=== PATIENT | female | born 1930 ===

== ENCOUNTER 2017-10-11 22:02 | Inpatient (IN) ==
[2017-10-12] MEDS ORDERED: Bisacodyl 10 MG Supp RECTAL PRN (02:23)
[2017-10-12] MEDS ORDERED: Temazepam 15 MG Capsule PO PRN (02:23)
[2017-10-12] MEDS ORDERED: Acetaminophen 325 MG Tablet PO PRN (02:23)
[2017-10-12] MEDS ORDERED: Morphine Inj 4 MG/ML Vial IV.PUSH PRN (02:25)
[2017-10-12] MEDS: Sod Chloride 0.9% Inj 1,000 ML IV.CONT SCH ×2 (06:11→16:50)
[2017-10-12 08:26] LABS: Baso % (Auto) 0.3 % (0.0-2.0); Eos # (Auto) 0.2 th/mm3 (0.0-0.4); Eos % (Auto) 2.8 % (0.0-4.0); Hematocrit 36.6 % (35.0-46.0); Hemoglobin 12.4 gm/dL (11.6-15.3); Lymph # (Auto) 0.9 th/mm3 (1.0-4.8); Lymph % (Auto) 14.5 % (9.0-44.0); Mean Corpuscular HGB Conc 33.8 % (32.0-36.0); Mean Corpuscular Hemoglobin 28.4 pg (27.0-34.0); Mean Platelet Volume 7.9 fL (7.0-11.0); Mono # (Auto) 0.6 th/mm3 (0.0-0.9); Mono % (Auto) 9.4 % (0.0-8.0); Neut # (Auto) 4.4 th/mm3 (1.8-7.7); Platelet Count 260 th/mm3 (150-450); Red Blood Count 4.35 mil/mm3 (4.00-5.30); Red Cell Distribution Width 14.2 % (11.6-17.2)
[2017-10-12 08:48] LABS: Albumin 2.9 g/dL (3.4-5.0); Anion Gap 10 meq/L (5-15); Aspartate Aminotransferase 11 U/L (15-37); Blood Urea Nitrogen 13 mg/dL (7-18); Calcium 8.9 mg/dL (8.5-10.1); Carbon Dioxide 27.4 meq/L (21.0-32.0); Chloride 98 meq/L (98-107); Glomerular Filtration Rate Greater Than 89 mL/min (>89); Glucose,Random 81 mg/dL (74-106); Potassium 3.1 meq/L (3.5-5.1); Sodium 135 meq/L (136-145)
[2017-10-12 08:52] LABS: Alanine Aminotransferase 18 U/L (10-53); Alkaline Phosphatase 173 U/L (45-117); Total Protein 5.8 g/dL (6.4-8.2)
--- NOTE | 2017-10-12 09:15 | MB ---
cc: Alirio Byrd PA/[employer] DATE: 10/12/2017 CHIEF COMPLAINT: Left pelvic pain status post fall on 09/24/2017. HISTORY OF PRESENT ILLNESS: The patient is an 87-year-old white female who was transferred from [facility] on 10/10/2017. She states that she suffered a fall on 09/24/2017 when she was walking back to her house and missed a step and fell onto her butt. She states that she had immediate pain in her left groin. She was taken to the hospital where she was diagnosed with a back strain and pelvic fractures. She was told to fully weight bear and be discharged home. Recently, however, she states that she has been developing significant urinary retention and increasing back pain, so she reported back to the Emergency Department at [facility]. They subsequently transferred her to [facility]. She states that she has pain in the left pelvis, but is able to fully weight bear with the help of a walker and using her arms. She states she has increasing back pain. She denies any numbness, tingling or radiation of symptoms. Denies any loss of consciousness or dizziness. Denies any fever or chills. Does report that she has been having urinary retention. REVIEW OF SYSTEMS: Denies any fevers, weight loss, headache, visual changes, hearing loss, chest pain, palpitations, shortness of breath, nausea, vomiting, neck pain, skin rashes, weakness or numbness of extremities or depression. ALLERGIES: NO KNOWN ALLERGIES. MEDICATIONS: For a complete list of medications, please see the patient's MAR. PAST MEDICAL HISTORY: Noncontributory. PAST SURGICAL HISTORY: Noncontributory. PHYSICAL EXAMINATION: VITAL SIGNS: Temperature 97.3, pulse 78, respiratory rate 18, blood pressure 140/70, O2 saturation 96% on room air. GENERAL: Well-developed, well-nourished, 87-year-old, white female resting comfortably, in no acute distress. HEAD: Normocephalic, atraumatic. EARS: Hearing intact bilaterally. EYES: Extraocular motions intact. Pupils are equal, round and reactive to light. NECK: Supple with no evidence of lymphadenopathy. NEUROLOGIC: Cranial nerves 2-12 are grossly intact. CHEST AND LUNGS: No use of accessory muscles while breathing and no audible wheezes at bedside. HEART: No grade IV murmur present. ABDOMEN: Soft and nontender. MUSCULOSKELETAL: Left lower extremity: Full motion of the hip, knee, ankle and toes. She does have mild discomfort in the pelvis with movement of the hip. She has full sensation distally with strong dorsiflexion. She has a negative Homans sign. Right lower extremity: Full motion of the hip, knee, ankle and toes and no pain with full sensation distally. Bilateral upper extremities: Full motion of the shoulders, elbows, wrists and fingers with no pain and full sensation distally. LABORATORY DATA: No labs to date.. IMAGING STUDIES: CT scan of the pelvis was reviewed from [facility], which shows minimally displaced left superior and inferior pubic rami fractures. ASSESSMENT: Minimally displaced left superior and inferior pubic rami fractures. PLAN: Treatment options were discussed with the patient regarding her pelvic fractures. This is something that is very stable and nonoperative management will be proceeded with. I informed her that she can fully weight bear with no restrictions. This is something that should cause her some pain and slight discomfort for the next 6-8 weeks. However, this should fade away and do well nonoperatively. I informed her to work on ambulating and fully weightbearing. She is orthopedically cleared for discharge and she can follow up with her on an outpatient basis with orthopedics in 2-3 weeks. I informed her to try and find an orthopedist closer to home so she does not have to travel all the way to [place]. Otherwise, she can be discharged home when medically cleared. Orthopedics will be signing off at this point. For any further problems, please reconsult orthopedics. The patient agrees with this plan. The above patient was reviewed and discussed with Dr. Smalls and he agrees with the above dictation. JOSHUA Joe, JOSHUA/First John Smalls MD Assist TYB/ROSIO , 08:05 AM , 09:13 AM
[2017-10-12] MEDS: Senna/Docusate Sodium 8.6/50 MG Tablet PO SCH ×2 (09:51→21:27)
[2017-10-12] MEDS: Carvedilol 6.25 MG Tablet PO SCH ×2 (09:51→21:27)
[2017-10-12] MEDS: Lisinopril 20 MG Tablet PO SCH (09:52)
--- NOTE | 2017-10-12 10:36 | MB ---
cc: Juan Guerra MD DATE: 10/12/2017 REASON FOR CONSULTATION: Trauma, trauma consultation status post fall. HISTORY OF PRESENT ILLNESS: The patient is an 87-year-old female who presents status post fall. She had a fall initially on 09/24/2017 for which she was evaluated at [facility] with x-rays which were negative and the patient was discharged home. She notes further progression in pain and not much improvement. She returned to the emergency department for further evaluation including more thorough workup including CT pelvis, L-spine and MRI. CT pelvis noted a superior inferior pubic rami fracture. CT spine showed degenerative changes with some spinal stenosis L4-L5. MRI confirming this. The patient also had complaints of difficulty with urination and pelvic pain. She states the pain was 7/10, currently a 4/10, improved with José catheter placement. She has been transferred to [place] for further management and evaluation. During her initial fall, she denied any loss of consciousness, hitting her head or dizziness. She states her foot just gave way and she did note falling on her left hip, for which, she has the persistent left hip pain as well. She has no further history of falls and she is relatively independent and ambulating prior to the event normally; however, after the event she has required assistance with a walker and difficulty getting around. PAST MEDICAL HISTORY: Hypertension. PAST SURGICAL HISTORY: Hysterectomy and ovarian cyst removal. SOCIAL HISTORY: Denies smoking, ETOH or IVDA. ALLERGIES: NO KNOWN DRUG ALLERGIES. MEDICATIONS: See electronic medical record. FAMILY HISTORY: Denies diabetes or hypertension. REVIEW OF SYSTEMS: A 12-point review of systems was done, otherwise negative except for as above. PHYSICAL EXAMINATION: GENERAL: No acute distress. VITAL SIGNS: Temperature 97.3, pulse 78, respirations 18, blood pressure 140/70, saturation 93%. HEENT: Pupils equal, round, reactive. NECK: Supple. Trachea midline. LUNGS: Bilateral expansion, clear. HEART: S1, S2. Regular. ABDOMEN: Soft, nontender, nondistended. PELVIS: Stable. Positive tenderness to palpation. GENITOURINARY: José catheter in place. EXTREMITIES: Warm and well perfused. NEUROLOGIC: 5/5 motor in all extremities. GCS of 15. PSYCHIATRIC: Appropriate mood, appropriate judgment. INTEGUMENT: No obvious masses or lesions. LABORATORY AND DIAGNOSTIC DATA: WBC 6, hemoglobin 12.4, hematocrit 36.6, platelets 260. Sodium 135, potassium 3.1, chloride 98, BUN is 13, creatinine 0.5, glucose 81. CT scans reviewed by myself show a CT abdomen with pelvis pubic rami fracture, nondisplaced, left-sided; distended bladder. Degenerative changes of the spine L4-L5 seen on CT L-spine. MRI confirming spinal stenosis, spinal listhesis, bulging of annulus. ASSESSMENT: The patient is an 87-year-old female, status post fall several weeks ago, presents with persistent pain, pubic rami fractures, neurogenic bladder, urinary retention, spinal stenosis, degenerative changes. PLAN: After a full workup, the patient with above named issues, at this point from a global trauma standpoint, no immediate intervention necessary. Would recommend continued medical care in regard to consultation with possibly Urology for bladder dysfunction, consultation to Neurology for further neuro workup. Recommend Orthopedic evaluation for nondisplaced pubic rami fractures. We will continue to follow. Thank you for the consultation. MD DARIN Jimenez/ROSIO , 09:34 AM , 10:34 AM
--- NOTE | 2017-10-12 13:17 | P.HPIM ---
History of Present Illness Service: [facility] hospitalist Primary Care Physician: UNKNOWN Chief Complaint: Traumatic fall, back pain, urinary retention, lower extremity weakness History of Present Illness: 87-year-old female with a medical history significant for hypertension and hypothyroidism transferred from [facility] for further workup. The patient initially had a fall about 3 weeks ago. She reports that her legs gave way and she fell to her side. She was seen in the emergency room and hip fracture ruled out at the time. She went home but continues to do poorly with difficulty bearing weight and walking. She reports the pain started moving to her lower back on the right side. She also started to have urinary incontinence every time she would stand up. The patient went back to [facility] emergency room where a pelvic CT revealed a superior and inferior pubic rami fracture. CT of the spine also showed degenerative changes at L4-L5. Also concern for fracture at T2. Imaging also showed distended bladder. A José catheter to have since been placed. The patient was transferred to [place] for further workup, consultation with neurology and urology. - Diagnosis (1) Pubic ramus fracture (2) Spinal stenosis (3) Urinary retention (4) Neurogenic bladder Inpatient Certification: I certify that the inpatient services were ordered in accordance with Medicare regulations governing the order. This includes certification that hospital inpatient services are reasonable and necessary and in the case of services not specified as inpatient-only under 42 CFR 419.22(n), that they are appropriately provided as inpatient services in accordance to with the 2-midnight benchmark under 43 CFR 412.3(e) Estimated Total Length of Stay (Days): 2 Plans for Post Hospital Care: Not yet determined Review of Systems All other systems reviewed negative except as stated [facility] - History History Provided By: Patient - Medical History Medical History: Medical History (Last Updated 10/12/17 @ 14:18 by Weston Mays MD) H/O: hysterectomy Hypertension Hypothyroid - Family History Family History: Family History (Last Updated 10/12/17 @ 14:18 by Weston Mays MD) Other Family history non-contributory - Tobacco History Second Hand Smoke Exposure: Yes Smoking Status: Former smoker Tobacco Type: Cigarettes - Alcohol History How Often Do You Have a Drink Containing Alcohol: 2 to 4 times a month - Substance Use History Substance History: No History of Abuse Medications and Allergies Active Medications: Active Medications Acetaminophen (Tylenol) 650 mg PO Q4H PRN PRN Reason: Temp > 100.4 Hydrocodone Bitart/Acetaminophen ([place] 5/325) 1 tab PO Q4H PRN PRN Reason: PAIN 3-5 Last Admin: 10/12/17 10:58 Dose: 1 tab Al Hydroxide/Mg Hydroxide (Milk Of Magnesia Liq) 30 ml PO Q12H PRN PRN Reason: Mild Constipation Last Admin: 10/12/17 09:52 Dose: 30 ml Bisacodyl (Dulcolax Supp) 10 mg RECTAL DAILY PRN PRN Reason: SEVERE CONSITIPATION Carvedilol (Coreg) 6.25 mg PO BID [facility] Last Admin: 10/12/17 09:51 Dose: 6.25 mg Cyclobenzaprine HCl (Flexeril) 10 mg PO Q8H PRN PRN Reason: Muscle Spasm Sodium Chloride (Ns Inj) 1,000 mls @ 100 mls/hr IV.CONT .Q10H [facility] Last Admin: 10/12/17 06:11 Dose: 100 mls/hr Lactulose (Lactulose Liq) 30 ml PO DAILY PRN PRN Reason: SEVERE CONSITIPATION Levothyroxine Sodium (Synthroid) 50 mcg PO DAILY@0600 [facility] Lisinopril (Prinivil) 40 mg PO DAILY [facility] Last Admin: 10/12/17 09:52 Dose: 40 mg Morphine Sulfate (Morphine Inj) 2 mg IV.PUSH Q4H PRN PRN Reason: PAIN 6-10 Ondansetron HCl (Zofran Odt) 4 mg PO Q6H PRN PRN Reason: NAUSEA OR VOMITING Senna/Docusate Sodium (Melina-Colace) 1 tab PO BID [facility] Last Admin: 10/12/17 09:51 Dose: 1 tab Sennosides (Senokot) 17.2 mg PO Q12H PRN PRN Reason: Moderate Constipation Temazepam (Restoril) 15 mg PO HS PRN PRN Reason: INSOMNIA Allergies Allergy/AdvReac Type Severity Reaction Status Date / Time No Known Allergies Allergy Verified 10/12/17 02:29 Home Medications Medication Instructions Recorded Confirmed Type carvedilol 6.25 mg PO BID MDD 2 tablets 10/12/17 10/12/17 History cyclobenzaprine 10 mg PO Q8H PRN 10/12/17 10/12/17 History levothyroxine 50 mcg PO DAILY 10/12/17 10/12/17 History lisinopril 40 mg PO DAILY 10/12/17 10/12/17 History meloxicam 15 mg PO DAILY PRN 10/12/17 10/12/17 History Exam Vital signs: Vital Signs 10/12/17 01:22 10/12/17 04:00 10/12/17 08:00 Temperature 97.3 F L 97.7 F 98.4 F Pulse Rate 78 77 81 Respiratory Rate Blood Pressure 140/70 164/74 H 185/87 H Pulse Oximetry 96 94 L 95 Intake & Output 10/11/17 10/12/17 10/12/17 18:59 06:59 18:59 Output Total 1000 / 1000 360 / 360 Balance -1000 / -1000 -360 / -360 Weight 51.2 kg Output: Urine 1000 / 1000 360 / 360 Other: Date of Last Bowel Movement 10/11/17 10/09/17 Weight On Admission 51.219 kg Narrative: CONSTITUTIONAL/GENERAL: This is an adequately nourished patient, in no apparent distress. Vital signs reviewed SKIN: No jaundice, rashes, or concerning lesions. Not diaphoretic. HEAD: Atraumatic. Normocephalic. EYES: Pupils equal and round and reactive. Extra ocular motions are intact. No scleral icterus. No injection or drainage. ENT: Hearing grossly normal. Nose without drainage. Throat without visible erythema, exudates, masses, or lesions. NECK: Trachea midline. Neck is supple, non-tender. No palpable thyroid enlargement or nodularity. CARDIOVASCULAR: Normal rate and regular rhythm without murmurs, gallops, or rubs. No JVD. Peripheral pulses 2+ and symmetric. RESPIRATORY/CHEST: Symmetric, unlabored respirations. Breath sounds equal and clear to auscultation bilaterally. No wheezes, crackles, rales, or rhonchi. GASTROINTESTINAL: Abdomen soft, non-tender, non-distended. No hepato- splenomegaly, or palpable masses. No guarding. Bowel sounds present. MUSCULOSKELETAL: Extremities without clubbing, cyanosis, or edema. There is tenderness to palpation over the lumbosacral area. NEUROLOGICAL: Awake and alert. Motor and sensory grossly within normal limits. Follows commands. Move all extremities spontaneously. Bilateral lower extremity 4+ out of 5 strength. PSYCHIATRIC: No obvious mood problems. No apparent hallucinations or other psychotic thought process. Results - Labs CBC & Chem 7: 10/12/17 07:06 10/12/17 07:06 Labs: Short CBC 10/12/17 Range/Units 07:06 WBC 6.0 (4.0-11.0) th/mm3 Hgb 12.4 (11.6-15.3) gm/dL Hct 36.6 (35.0-46.0) % Plt Count 260 (150-450) th/mm3 BMP 10/12/17 07:06 Sodium 135 L Potassium 3.1 L Chloride 98 Carbon Dioxide 27.4 BUN 13 Creatinine 0.57 Calcium 8.9 Liver Function 10/12/17 Range/Units 07:06 Total Bilirubin 0.8 (0.2-1.0) mg/dL AST 11 L (15-37) U/L ALT 18 (10-53) U/L Alkaline Phosphatase 173 H (45-117) U/L Albumin 2.9 L (3.4-5.0) g/dL Caprini VTE Risk Assessment Caprini VTE Risk Assessment: Moderate/High Risk (score >= 2) Caprini Risk Assessment Model: Point Value = 1 Point Value = 2 Point Value = 3 Point Value = 5 Age 41-60 Minor surgery BMI > 25 kg/m2 Swollen legs Varicose veins or History of unexplained or recurrent spontaneous Oral contraceptives or hormone replacement Sepsis (< 1 month) Serious lung disease, including pneumonia (< 1 month) Abnormal pulmonary function Acute myocardial infarction Congestive heart failure (< 1 month) History of inflammatory bowel disease Medical patient at bed rest Age 61-74 Arthroscopic surgery Major open surgery (> 45 min) Laparoscopic surgery (> 45 min) Malignancy Confined to bed (> 72 hours) Immobilizing plaster cast Central venous access Age >= 75 History of VTE Family history of VTE Factor V Leiden Prothrombin [id number] Lupus anticoagulant Anticardiolipin antibodies Elevated serum homocysteine Heparin-induced thrombocytopenia Other congenital or acquired thrombophilia Stroke (< 1 month) Elective arthroplasty Hip, pelvis, or leg fracture Acute spinal cord injury (< 1 month) Prophylaxis Regimen: Total Risk Factor Score Risk Level Prophylaxis Regimen 0-1 Low Early ambulation 2 Moderate Order ONE of the following: *Sequential Compression Device (SCD) *Heparin 5000 units SQ BID 3-4 Higher Order ONE of the following medications: *Heparin 5000 units SQ TID *Enoxaparin/Lovenox 40 mg SQ daily (WT < 150 kg, CrCl > 30 mL/min) *Enoxaparin/Lovenox 30 mg SQ daily (WT < 150 kg, CrCl > 10-29 mL/min) *Enoxaparin/Lovenox 30 mg SQ BID (WT < 150 kg, CrCl > 30 mL/min) AND/OR *Sequential Compression Device (SCD) 5 or more Highest Order ONE of the following medications: *Heparin 5000 units SQ TID (Preferred with Epidurals) *Enoxaparin/Lovenox 40 mg SQ daily (WT < 150 kg, CrCl > 30 mL/min) *Enoxaparin/Lovenox 30 mg SQ daily (WT < 150 kg, CrCl > 10-29 mL/min) *Enoxaparin/Lovenox 30 mg SQ BID (WT < 150 kg, CrCl > 30 mL/min) AND *Sequential Compression Device (SCD) Assessment and Plan - Assessment (1) Pubic ramus fracture Code(s): S32.599A - Other specified fracture of unspecified pubis, initial encounter for closed fracture Status: Acute (2) Spinal stenosis Code(s): M48.00 - Spinal stenosis, site unspecified Status: Acute (3) Urinary retention Code(s): R33.9 - Retention of urine, unspecified Status: Acute (4) Neurogenic bladder Code(s): N31.9 - Neuromuscular dysfunction of bladder, unspecified Status: Acute - Plan 87-year-old female with: Status post fall, fracture of pelvic rami: - Patient has been evaluated by trauma service and orthopedic surgery. Advised conservative management and weightbearing as tolerated. - Pain control -Physical therapy. Lumbar spinal stenosis with foraminal narrowing, neurogenic bladder: -Her symptoms might have been exacerbated from the traumatic fall. -Consult neurology for assistance -Pain control. -PT Neurogenic bladder/urinary retention: -José in place. -Consult urology for assistance. Hypertension: Continue home dose Coreg and lisinopril Hypothyroidism: Continue Synthroid Hypokalemia:-This was replaced at [facility]. Repeat labs in a.m. GI prophylaxis: Stool softener PRN constipation. DVT PPx: Heparin H&P: Quality - VTE Deep Vein Thrombosis/Pulmonary Embolism Present on Admission: No
[2017-10-12] MEDS: Heparin - SQ 10,000 UNITS/ML Vial SQ SCH (17:24)
[2017-10-12 17:41] LABS: Hematocrit 34.1 % (35.0-46.0); Hemoglobin 11.7 gm/dL (11.6-15.3); Mean Corpuscular HGB Conc 34.4 % (32.0-36.0); Mean Corpuscular Hemoglobin 28.7 pg (27.0-34.0); Mean Corpuscular Volume 83.3 fL (80.0-100.0); Mean Platelet Volume 7.9 fL (7.0-11.0); Platelet Count 259 th/mm3 (150-450); Red Blood Count 4.09 mil/mm3 (4.00-5.30); Red Cell Distribution Width 14.3 % (11.6-17.2); White Blood Count 7.6 th/mm3 (4.0-11.0)
[2017-10-12 17:53] LABS: Calcium 8.8 mg/dL (8.5-10.1); Carbon Dioxide 27.7 meq/L (21.0-32.0); Potassium 3.8 meq/L (3.5-5.1)
[2017-10-12 18:24] LABS: Bacteria,Urine Rare /hpf; Bilirubin,Urine Negative (Negative); Clarity,Urine Clear (Clear); Color,Urine Straw (Yellw/Straw); Glucose,Urine (UA) Negative (Negative); Leukocyte Esterase,Urine Small (Negative); Nitrite,Urine Negative (Negative); Specific Gravity,Urine 1.003 (1.002-1.035)
--- NOTE | 2017-10-12 19:09 | MB ---
cc: [employer] [place] DO DATE: 10/12/2017 HISTORY OF PRESENT ILLNESS: Ms. Toure is a pleasant 87-year-old female who was initially seen at [facility] and was then transferred up to [place]. She was found to be in urinary retention and approximately 2 liters were drained from her bladder upon presentation. The patient reports a history of a pelvic fracture after a fall which occurred on 09/24 and then she developed subsequent urinary incontinence after that. Her incontinence continued to worsen and then she eventually went into urinary retention. It seemed per her history that she was in overflow incontinence. She denies any urinary tract infections recently or blood in her urine. A CT scan revealed superior and inferior rami pelvic fractures, as well as degenerative changes and a fracture at T2. She also had an MRI which showed some disk bulging at the level of L5-S1 and L3-L4, with nondisplaced acute fracture around the lateral third of the left sacrum. She does have considerable pain and has had trouble moving her bowels recently. PAST MEDICAL HISTORY: Includes urinary retention with pubic ramus fracture, spinal stenosis, hypothyroidism and hypertension. PAST SURGICAL HISTORY: Hysterectomy in the past. FAMILY HISTORY: Denies any bladder cancer. SOCIAL HISTORY: She is a former smoker. She drinks 2-4 times a month with dinner. No history of abuse. REVIEW OF SYSTEMS: Notes pelvic pain, urinary incontinence. Remaining review of systems were reviewed and were negative. PHYSICAL EXAMINATION: VITAL SIGNS: Today, temperature 97.3, heart rate 83, respiratory rate 21, 144/80 is her blood pressure. GENERAL: Well-developed, well-nourished, 87-year-old female in no acute distress. HEENT: Normocephalic, atraumatic. Pupils equal, round, regular and reactive to light. Extraocular movements intact. NECK: Supple. HEART: Regular rate and rhythm. LUNGS: Clear. ABDOMEN: Soft, nontender, nondistended. José catheter is in place draining clear urine. EXTREMITIES: Show no cyanosis, clubbing, or edema. LABORATORY DATA: White count 6.0, hemoglobin 12, hematocrit 36.6, platelets of 260. Sodium 135, potassium 3.1, chloride 98, CO2 27.4, BUN of 13, creatinine 0.57, glucose of 81. ASSESSMENT AND PLAN: This is an 87-year-old female with history of a pelvic fracture and disk bulging at L5-S1, with evidence of overflow incontinence and urinary retention. Urinary retention secondary to recent pelvic fracture with some nerve impairment causing incontinence. Recommend maintaining the José catheter now. Pain control, rehabilitation therapy, as well as a neurologic evaluation. We will follow with you and leave the catheter in for now. I will give a void trial later to determine if she can control her urine. If not, we will need clean intermittent catheterization until her symptoms improve. Thank you for the consult and allowing me to participate in the care of this patient. DO SHAMEKA Mays , 04:33 PM , 07:08 PM
[2017-10-13] MEDS: Sod Chloride 0.9% Inj 1,000 ML IV.CONT SCH (01:16)
[2017-10-13] MEDS: Levothyroxine 50 MCG Tablet PO SCH (06:46)
--- NOTE | 2017-10-13 08:08 | P.CONNEU ---
History of Present Illness Service: Neurology Primary Care Provider: UNKNOWN Chief Complaint: Traumatic fall, back pain, urinary retention, lower extremity weakness History of Present Illness: 87-year-old female with a medical history significant for hypertension and hypothyroidism transferred from [facility] for further workup. The patient initially had a fall about 3 weeks ago. She reports that her legs gave way and she fell to her side. She was seen in the emergency room and hip fracture ruled out at the time. Has mid lower back pain that radiates around the waistline slightly in the buttocks region. No significant radiation down her legs. Hello but numbness in her right buttocks yesterday. Denies any numbness in her feet or her hands or any neck pain or headache. The patient went back to [facility] emergency room where a pelvic CT revealed a superior and inferior pubic rami fracture. Denies any recent medication changes, vaccinations or sick contacts. Review of Systems All other systems reviewed negative except as stated in HPI PMFSH - History History Provided By: Patient - Family History Family History: Family History (Last Updated 10/12/17 @ 14:18 by Weston Mays MD) Other Family history non-contributory - Tobacco History Second Hand Smoke Exposure: Yes Smoking Status: Former smoker Tobacco Type: Cigarettes - Alcohol History How Often Do You Have a Drink Containing Alcohol: 2 to 4 times a month - Substance Use History Substance History: No History of Abuse Medications and Allergies Active Medications: Active Medications Acetaminophen (Tylenol) 650 mg PO Q4H PRN PRN Reason: Temp > 100.4 Hydrocodone Bitart/Acetaminophen ([place] 5/325) 1 tab PO Q4H PRN PRN Reason: PAIN 3-5 Last Admin: 10/12/17 10:58 Dose: 1 tab Al Hydroxide/Mg Hydroxide (Milk Of Magnesia Liq) 30 ml PO Q12H PRN PRN Reason: Mild Constipation Last Admin: 10/12/17 09:52 Dose: 30 ml Bisacodyl (Dulcolax Supp) 10 mg RECTAL DAILY PRN PRN Reason: SEVERE CONSITIPATION Carvedilol (Coreg) 6.25 mg PO BID KARELY Last Admin: 10/12/17 21:27 Dose: 6.25 mg Cyclobenzaprine HCl (Flexeril) 10 mg PO Q8H PRN PRN Reason: Muscle Spasm Heparin Sodium (Porcine) (Heparin Inj) 5,000 units SQ Q12HR [facility] Last Admin: 10/12/17 17:24 Dose: 5,000 units Sodium Chloride (Ns Inj) 1,000 mls @ 100 mls/hr IV.CONT .Q10H [facility] Last Admin: 10/13/17 01:16 Dose: Not Given Lactulose (Lactulose Liq) 30 ml PO DAILY PRN PRN Reason: SEVERE CONSITIPATION Last Admin: 10/12/17 17:24 Dose: 30 ml Levothyroxine Sodium (Synthroid) 50 mcg PO DAILY@0600 [facility] Last Admin: 10/13/17 06:46 Dose: 50 mcg Lisinopril (Prinivil) 40 mg PO DAILY [facility] Last Admin: 10/12/17 09:52 Dose: 40 mg Morphine Sulfate (Morphine Inj) 2 mg IV.PUSH Q4H PRN PRN Reason: PAIN 6-10 Last Admin: 10/13/17 01:50 Dose: 2 mg Ondansetron HCl (Zofran Odt) 4 mg PO Q6H PRN PRN Reason: NAUSEA OR VOMITING Senna/Docusate Sodium (Melina-Colace) 1 tab PO BID [facility] Last Admin: 10/12/17 21:27 Dose: 1 tab Sennosides (Senokot) 17.2 mg PO Q12H PRN PRN Reason: Moderate Constipation Temazepam (Restoril) 15 mg PO HS PRN PRN Reason: INSOMNIA Allergies Allergy/AdvReac Type Severity Reaction Status Date / Time No Known Allergies Allergy Verified 10/12/17 02:29 Home Medications Medication Instructions Recorded Confirmed Type carvedilol 6.25 mg PO BID MDD 2 tablets 10/12/17 10/12/17 History cyclobenzaprine 10 mg PO Q8H PRN 10/12/17 10/12/17 History levothyroxine 50 mcg PO DAILY 10/12/17 10/12/17 History lisinopril 40 mg PO DAILY 10/12/17 10/12/17 History meloxicam 15 mg PO DAILY PRN 10/12/17 10/12/17 History Exam Vital signs: Vital Signs 10/12/17 12:00 10/12/17 20:00 10/13/17 00:00 Temperature 97.3 F L 98.0 F 98.4 F Pulse Rate 83 82 77 Respiratory Rate 21 18 18 Blood Pressure 144/58 H 160/76 H 156/74 H Pulse Oximetry 96 92 L 94 L 10/13/17 04:00 Temperature 97.7 F Pulse Rate 77 Respiratory Rate 18 Blood Pressure 165/77 H Pulse Oximetry 94 L Intake & Output 10/12/17 10/13/17 10/13/17 18:59 06:59 18:59 Output Total 360 / 360 400 / 400 Balance -360 / -360 -400 / -400 Output: Urine 360 / 360 400 / 400 Other: Date of Last Bowel Movement 10/09/17 10/13/17 Narrative: GENERAL: Alert, NAD. SKIN: Warm and dry. HEAD: Normocephalic. EYES: No scleral icterus. NECK: Supple, trachea midline. CARDIOVASCULAR: Regular rate and rhythm RESPIRATORY: Breath sounds equal bilaterally. No accessory muscle use. GASTROINTESTINAL: Abdomen soft, non-tender, nondistended. MUSCULOSKELETAL: No cyanosis, or edema. Awake alert oriented 3 fluent articulate no aphasia visual martinez full tongue midline no pronator drift, heel raise both lower extremity to gravity transiently states she has got pain in her hip which limits this likely from her fracture, pinprick intact no sensory level elicited reflexes are 1-2+, plantarflex her no clonus elicited, gait not assessed secondary fall risk no neglect - Constitutional no acute distress - Routine HEENT Exam Head: Present: normocephalic, atraumatic Eye: Present: EOMI, PERRL ENT: Present: mucous membranes moist - Routine Neck Exam Present: supple, full ROM - Routine Cardiovascular Exam Present: RRR Results - Labs CBC & Chem 7: 10/12/17 16:09 10/12/17 16:09 Labs: Laboratory Results - last 24 hr 10/12/17 10/12/17 10/12/17 07:06 07:06 16:09 WBC 6.0 7.6 RBC 4.35 4.09 Hgb 12.4 11.7 Hct 36.6 34.1 L MCV 84.0 83.3 MCH 28.4 28.7 MCHC 33.8 34.4 RDW 14.2 14.3 Plt Count 260 259 MPV 7.9 7.9 Neut % (Auto) 73.0 H Lymph % (Auto) 14.5 [place] % (Auto) 9.4 H Eos % (Auto) 2.8 Baso % (Auto) 0.3 Neut # (Auto) 4.4 Lymph # (Auto) 0.9 L [place] # (Auto) 0.6 Eos # (Auto) 0.2 Baso # (Auto) 0.0 WBC Differential . Differential Comment Auto diff final Sodium 135 L Potassium 3.1 L Chloride 98 Carbon Dioxide 27.4 Anion Gap 10 BUN 13 Creatinine 0.57 Estimated GFR Greater than 89 Random Glucose 81 Calcium 8.9 Total Bilirubin 0.8 AST 11 L ALT 18 Alkaline Phosphatase 173 H Total Protein 5.8 L Albumin 2.9 L Urine Color Urine Clarity Urine pH Ur Specific [place] Urine Protein Urine Glucose (UA) Urine Ketones Urine Occult Blood Urine Nitrate Urine Bilirubin Urine Urobilinogen Ur Leukocyte Esterase Urine RBC Urine WBC Urine Bacteria Micro UA Comment Urine Culture Comments 10/12/17 10/12/17 16:09 17:45 WBC RBC Hgb Hct MCV MCH MCHC RDW Plt Count MPV Neut % (Auto) Lymph % (Auto) [place] % (Auto) Eos % (Auto) Baso % (Auto) Neut # (Auto) Lymph # (Auto) [place] # (Auto) Eos # (Auto) Baso # (Auto) WBC Differential Differential Comment Sodium 132 L Potassium 3.8 Chloride 95 L Carbon Dioxide 27.7 Anion Gap 9 BUN 17 Creatinine 0.67 Estimated GFR 84 L Random Glucose 91 Calcium 8.8 Total Bilirubin AST ALT Alkaline Phosphatase Total Protein Albumin Urine Color Straw Urine Clarity Clear Urine pH 7.0 Ur Specific [place] 1.003 Urine Protein Negative Urine Glucose (UA) Negative Urine Ketones Trace H Urine Occult Blood Moderate H Urine Nitrate Negative Urine Bilirubin Negative Urine Urobilinogen Less than 2 Ur Leukocyte Esterase Small H Urine RBC 2 Urine WBC 6 H Urine Bacteria Rare H Micro UA Comment Culture not ind Urine Culture Comments Culture not ind Review/Management - Diagnosis (1) Pubic ramus fracture Code(s): S32.599A - Other specified fracture of unspecified pubis, initial encounter for closed fracture Status: Acute Current Visit: Yes (2) Spinal stenosis Code(s): M48.00 - Spinal stenosis, site unspecified Status: Acute Current Visit: Yes (3) Urinary retention Code(s): R33.9 - Retention of urine, unspecified Status: Acute Current Visit : Yes - Review/Management Plan: Possible conus medullaris syndrome versus cord contusion from fall Lesser likely cauda equina syndrome as there is minimal radicular pain and preservation of reflexes Recommendations Follow-up MRI L-spine PT May require neurosurgical evaluation if orthopedics does not want to be involved with any spinal problem Follow exam
[2017-10-13] MEDS: Lisinopril 20 MG Tablet PO SCH (08:38)
[2017-10-13] MEDS: Heparin - SQ 10,000 UNITS/ML Vial SQ SCH ×2 (08:38→20:39)
[2017-10-13] MEDS: Carvedilol 6.25 MG Tablet PO SCH ×2 (08:38→20:39)
--- NOTE | 2017-10-13 08:40 | P.PNOP ---
Subjective Interval history: Resting comfortably with no new complaints. Physical Exam Vital signs: Vital Signs 10/12/17 12:00 10/12/17 20:00 10/13/17 00:00 Temperature 97.3 F L 98.0 F 98.4 F Pulse Rate 83 82 77 Respiratory Rate 21 18 18 Blood Pressure 144/58 H 160/76 H 156/74 H Pulse Oximetry 96 92 L 94 L 10/13/17 04:00 Temperature 97.7 F Pulse Rate 77 Respiratory Rate 18 Blood Pressure 165/77 H Pulse Oximetry 94 L Intake & Output 10/12/17 10/13/17 10/13/17 18:59 06:59 18:59 Output Total 360 / 360 400 / 400 Balance -360 / -360 -400 / -400 Output: Urine 360 / 360 400 / 400 Other: Date of Last Bowel Movement 10/09/17 10/13/17 Narrative: She has pain to palpation over pubic rami. She has minimal pain with passive range of motion of bilateral hips. She has tenderness with active forward flexion of hips. Distally she has intact sensation of bilateral lower extremities with active dorsiflexion plantar flexion of feet Results - Labs CBC & Chem 7: 10/12/17 16:09 10/12/17 16:09 Laboratory Results - last 24 hr 10/12/17 10/12/17 10/12/17 07:06 16:09 16:09 WBC 7.6 RBC 4.09 Hgb 11.7 Hct 34.1 L MCV 83.3 MCH 28.7 MCHC 34.4 RDW 14.3 Plt Count 259 MPV 7.9 Sodium 135 L 132 L Potassium 3.1 L 3.8 Chloride 98 95 L Carbon Dioxide 27.4 27.7 Anion Gap 10 9 BUN 13 17 Creatinine 0.57 0.67 Estimated GFR Greater than 89 84 L Random Glucose 81 91 Calcium 8.9 8.8 Total Bilirubin 0.8 AST 11 L ALT 18 Alkaline Phosphatase 173 H Total Protein 5.8 L Albumin 2.9 L Urine Color Urine Clarity Urine pH Ur Specific [place] Urine Protein Urine Glucose (UA) Urine Ketones Urine Occult Blood Urine Nitrate Urine Bilirubin Urine Urobilinogen Ur Leukocyte Esterase Urine RBC Urine WBC Urine Bacteria Micro UA Comment Urine Culture Comments 10/12/17 17:45 WBC RBC Hgb Hct MCV MCH MCHC RDW Plt Count MPV Sodium Potassium Chloride Carbon Dioxide Anion Gap BUN Creatinine Estimated GFR Random Glucose Calcium Total Bilirubin AST ALT Alkaline Phosphatase Total Protein Albumin Urine Color Straw Urine Clarity Clear Urine pH 7.0 Ur Specific [place] 1.003 Urine Protein Negative Urine Glucose (UA) Negative Urine Ketones Trace H Urine Occult Blood Moderate H Urine Nitrate Negative Urine Bilirubin Negative Urine Urobilinogen Less than 2 Ur Leukocyte Esterase Small H Urine RBC 2 Urine WBC 6 H Urine Bacteria Rare H Micro UA Comment Culture not ind Urine Culture Comments Culture not ind Assessment and Plan - Assessment and Plan Pubic rami fractures Physical therapy will continue to be weightbearing as tolerated on bilateral lower extremities. Using a walker she may continue to progress her activity. We will re-x-ray in 2 weeks in office
--- NOTE | 2017-10-13 10:30 | P.PN ---
Subjective Interval history: Follow-up visit for fall and pelvic rami fracture, lumbar stenosis with foraminal narrowing, neurogenic bladder, and HTN. Patient is seen and examined sitting up in bed, in no acute distress. Reports lower back pain when sitting up straight, able to ambulate with walker. She does report some numbness to right buttocks after sitting for long periods of time, denies any lower extremity weakness, fecal incontinence. Denies any fevers, chills, nausea, vomiting, diarrhea, cough, shortness of breath or chest pain. Spoke with nurse reports planned for lower spine MRI today per neurology, BP elevated this morning. Physical Exam Vital signs: Vital Signs 10/12/17 12:00 10/12/17 20:00 10/13/17 00:00 Temperature 36.3 C L 36.7 C 36.9 C Pulse Rate 83 82 77 Respiratory Rate 21 18 18 Blood Pressure 144/58 H 160/76 H 156/74 H Pulse Oximetry 96 92 L 94 L 10/13/17 04:00 Temperature 36.5 C Pulse Rate 77 Respiratory Rate 18 Blood Pressure 165/77 H Pulse Oximetry 94 L Intake & Output 10/12/17 10/13/17 10/13/17 18:59 06:59 18:59 Output Total 360 / 360 400 / 400 Balance -360 / -360 -400 / -400 Output: Urine 360 / 360 400 / 400 Other: Date of Last Bowel Movement 10/09/17 10/13/17 Narrative: GENERAL: Well nourished patient, in no apparent distress. SKIN: Warm and dry. HEAD: Atraumatic. Normocephalic. EYES: Pupils equal and round. No scleral icterus. No injection or drainage. ENT: Nose without drainage. NECK: Trachea midline. Neck is supple. CARDIOVASCULAR: Normal rate and regular rhythm without murmurs, gallops, or rubs. No JVD. RESPIRATORY: Symmetric, unlabored respirations. Breath sounds equal and clear to auscultation bilaterally. No wheezes, crackles, rales, or rhonchi. GASTROINTESTINAL: Abdomen soft, non-tender, non-distended. + Bowel sounds. GENITOURINARY: José catheter with clear yellow urine in bag. MUSCULOSKELETAL: Extremities without clubbing, cyanosis, or edema. + tenderness to palpation over the lumbosacral area. NEUROLOGICAL: Awake and alert. Motor and sensory grossly within normal limits. Follows commands. Move all extremities spontaneously. - Urinary Catheter Management Indwelling Urethral Catheter Cath placed during this visit: no Reason for continuing: Acute urinary retention Results - Labs CBC & Chem 7: 10/12/17 16:09 10/12/17 16:09 Laboratory Results - last 24 hr 10/12/17 10/12/17 10/12/17 16:09 16:09 17:45 WBC 7.6 RBC 4.09 Hgb 11.7 Hct 34.1 L MCV 83.3 MCH 28.7 MCHC 34.4 RDW 14.3 Plt Count 259 MPV 7.9 Sodium 132 L Potassium 3.8 Chloride 95 L Carbon Dioxide 27.7 Anion Gap 9 BUN 17 Creatinine 0.67 Estimated GFR 84 L Random Glucose 91 Calcium 8.8 Urine Color Straw Urine Clarity Clear Urine pH 7.0 Ur Specific [place] 1.003 Urine Protein Negative Urine Glucose (UA) Negative Urine Ketones Trace H Urine Occult Blood Moderate H Urine Nitrate Negative Urine Bilirubin Negative Urine Urobilinogen Less than 2 Ur Leukocyte Esterase Small H Urine RBC 2 Urine WBC 6 H Urine Bacteria Rare H Micro UA Comment Culture not ind Urine Culture Comments Culture not ind Assessment and Plan - Assessment (1) Pubic ramus fracture Code(s): S32.599A - Other specified fracture of unspecified pubis, initial encounter for closed fracture Status: Acute (2) Spinal stenosis Code(s): M48.00 - Spinal stenosis, site unspecified Status: Acute (3) Urinary retention Code(s): R33.9 - Retention of urine, unspecified Status: Acute (4) Neurogenic bladder Code(s): N31.9 - Neuromuscular dysfunction of bladder, unspecified Status: Acute - Plan 87-year-old female with: Status post fall, fracture of pelvic rami: - Patient has been evaluated by trauma service and orthopedic surgery. Advised conservative management and weightbearing as tolerated. -Weight though recommends weightbearing as tolerated on bilateral lower extremities. Will need to follow-up in 2 weeks for repeat x-ray. - Pain control -Physical therapy. Lumbar spinal stenosis with foraminal narrowing, neurogenic bladder: -Her symptoms might have been exacerbated from the traumatic fall. -Neurology has seen and evaluated patient, appreciate assistance. -Plan for lumbar spine MRI, depending on results possible neurosurgical evaluation. -Pain control. -PT Neurogenic bladder/urinary retention: -José in place. -Urology Dr. [place] has seen and evaluated patient, appreciate assistance. Recommendations to continue José catheter, follow-up as outpatient for voiding trials versus intermittent catheterization. Hypertension - Continue home dose Coreg and lisinopril -BP slightly elevated this morning, start low-dose Norvasc 5 mg daily Hypothyroidism: Continue Synthroid Hypokalemia, resolved, recheck potassium 138. GI prophylaxis: Stool softener PRN constipation. DVT PPx: Heparin Discussed Condition With: Discussed with patient and nurse. Discharge Planning: Patient scheduled for lumbar spine MRI today. Pending neurology clearance.
[2017-10-13] MEDS: Senna/Docusate Sodium 8.6/50 MG Tablet PO SCH ×2 (11:52→20:39)
[2017-10-13] MEDS: amLODIPine 5 MG Tablet PO SCH (12:52)
--- NOTE | 2017-10-13 19:45 | MR ---
EXAM DATE: 10/13/2017 7:35 PM EDT AGE/SEX: 87 years / Female INDICATIONS: Pain. Low back pain with fractures in the pelvis. CLINICAL DATA: This is the patient's initial encounter. Patient reports that signs and symptoms have been present for 2 weeks and indicates a pain score of 9/10. MEDICAL/SURGICAL HISTORY: Hypertension. Hypothyroidism. Hysterectomy. COMPARISON: No prior exams available for comparison. TECHNIQUE: Multiplanar, multisequence MRI of the lumbar spine was performed without contrast. Patie nt was scanned in a sitting position; neutral, flexion, and extension scans were performed in the sa gittal plane. FINDINGS: Vertebra: The lumbar vertebral bodies are normal in signal and normal in height. There is mild anter ior subluxation of L4 on L5 secondary to facet hypertrophy. Pars defects are not present. There appea rs to be a hemangioma at the posterior left lateral L1 vertebral body. There is increased signal with in the left lateral sacrum. Conus: Normal level and configuration. T12-L1: The thecal sac has a normal diameter. No evidence of disc bulge or protrusion. The neural foramina are patent bilaterally. The disc demonstrates decreased signal. L1-L2: The thecal sac has a normal diameter. No evidence of disc bulge or protrusion. The neural foramina are patent bilaterally. The disc demonstrates decreased signal. L2-L3: The thecal sac has a normal diameter. No evidence of disc bulge or protrusion. The neural foramina are patent bilaterally. The disc demonstrates decreased signal. There is mild facet hypertro phy. L3-L4: The disc demonstrates decreased signal. There is minimal bulging without significant stenosi s. There is moderate facet hypertrophy. The neural foramina are patent bilaterally. L4-L5: Again noted is the anterior subluxation of L4 on L5 secondary to facet hypertrophy. The disc demonstrates decreased signal and decreased height. There is moderate diffuse disc bulge. The disc b ulge and facet hypertrophy lead to moderate stenosis with minimal CSF seen around the nerve roots. Th e narrowing of the thecal sac is most prominent at the lateral recess regions. The disc bulge does ca use impression on the right neural foramina. Left neural foramina is patent. L5-S1: The thecal sac has a normal diameter. No evidence of disc bulge or protrusion. The neural foramina are patent bilaterally. The disc demonstrates decreased signal. CONCLUSION: 1. Increased signal within the left lateral upper sacrum likely from fracturing. This a good locatio n for insufficiency fractures. 2. Anterior subluxation of L4 on L5 secondary to severe facet hypertrophy. There is an associated mo derate bulging disc. These changes lead to moderate stenosis at this level. 3. Decreased signal within the disks throughout the lumbar spine consistent with desiccation. The di sc, with the exception of the L4-L5 level, maintain their height. Electronically signed by: Serg Rodriguez MD 10/13/2017 7:44 PM EDT
[2017-10-14] MEDS: Levothyroxine 50 MCG Tablet PO SCH (06:17)
[2017-10-14] MEDS: Senna/Docusate Sodium 8.6/50 MG Tablet PO SCH ×2 (09:41→20:50)
[2017-10-14] MEDS: Heparin - SQ 10,000 UNITS/ML Vial SQ SCH ×2 (09:41→20:49)
[2017-10-14] MEDS: amLODIPine 5 MG Tablet PO SCH (09:41)
[2017-10-14] MEDS: Carvedilol 6.25 MG Tablet PO SCH ×2 (09:41→20:50)
[2017-10-14] MEDS: Lisinopril 20 MG Tablet PO SCH (09:41)
--- NOTE | 2017-10-14 11:27 | P.PN ---
Subjective Interval history: Follow-up visit for fall and pelvic rami fracture, lumbar stenosis with foraminal narrowing, neurogenic bladder, and HTN. Patient is seen and examined resting in bed in no acute distress. She denies any fevers, chills, nausea, vomiting, diarrhea, cough, shortness of breath or chest pain. She continues to complain of tailbone pain especially when sitting up. Physical Exam Vital signs: Vital Signs 10/13/17 16:00 10/13/17 16:05 10/13/17 16:18 Temperature 36.6 C 36.4 C L 36.4 C L Pulse Rate 77 Respiratory Rate 16 16 16 Blood Pressure 146/67 H 182/77 H 170/79 H Pulse Oximetry 97 16 L 98 10/13/17 20:50 10/13/17 23:56 10/14/17 00:30 Temperature 36.3 C L 36.7 C Pulse Rate 70 71 Respiratory Rate 18 18 15 Blood Pressure 167/77 H 163/77 H Pulse Oximetry 97 95 10/14/17 03:58 10/14/17 08:00 Temperature 36.4 C L 36.6 C Pulse Rate 70 74 Respiratory Rate 17 18 Blood Pressure 163/72 H 157/77 H Pulse Oximetry 95 96 Intake & Output 10/13/17 10/14/17 10/14/17 18:59 06:59 18:59 Intake Total 240 / 240 360 / 360 Output Total 1999 550 / 550 Balance 240 / 240 -1640 / -1640 -550 / -550 Weight 51.2 kg Intake: Oral 240 / 240 360 / 360 Output: Urine Amount (Catheter) 1999 550 / 550 Indwelling Urethral Catheter 1999 550 / 550 Other: Date of Last Bowel Movement 10/13/17 10/13/17 # Bowel Movements 0 Narrative: GENERAL: Well nourished patient, in no apparent distress. SKIN: Warm and dry. HEAD: Atraumatic. Normocephalic. EYES: Pupils equal and round. No scleral icterus. No injection or drainage. ENT: Nose without drainage. NECK: Trachea midline. Neck is supple. CARDIOVASCULAR: Normal rate and regular rhythm without murmurs, RESPIRATORY: Breath sounds equal and clear to auscultation bilaterally. No wheezes, crackles, rales, or rhonchi. GASTROINTESTINAL: Abdomen soft, non-tender, non-distended. NEUROLOGICAL: Awake alert oriented 3. Extraocular movements intact no facial asymmetry. - Urinary Catheter Management Indwelling Urethral Catheter Cath placed during this visit: no Reason for continuing: Acute urinary retention Results - Labs CBC & Chem 7: 10/12/17 16:09 10/12/17 16:09 - Imaging Impressions Lumbar Spine MRI 10/13/17 00:00 CONCLUSION: 1. Increased signal within the left lateral upper sacrum likely from fracturing. This a good location for insufficiency fractures. 2. Anterior subluxation of L4 on L5 secondary to severe facet hypertrophy. There is an associated moderate bulging disc. These changes lead to moderate stenosis at this level. 3. Decreased signal within the disks throughout the lumbar spine consistent with desiccation. The disc, with the exception of the L4-L5 level, maintain their height. Assessment and Plan - Assessment (1) Pubic ramus fracture Code(s): S32.599A - Other specified fracture of unspecified pubis, initial encounter for closed fracture Status: Acute (2) Spinal stenosis Code(s): M48.00 - Spinal stenosis, site unspecified Status: Acute (3) Urinary retention Code(s): R33.9 - Retention of urine, unspecified Status: Acute (4) Neurogenic bladder Code(s): N31.9 - Neuromuscular dysfunction of bladder, unspecified Status: Acute - Plan 87-year-old female with: Status post fall, fracture of pelvic rami: - Patient has been evaluated by trauma service and orthopedic surgery. Advised conservative management and weightbearing as tolerated. -Weight though recommends weightbearing as tolerated on bilateral lower extremities. Will need to follow-up in 2 weeks for repeat x-ray. - Pain control -Physical therapy. Lumbar spinal stenosis with foraminal narrowing, neurogenic bladder: -Her symptoms might have been exacerbated from the traumatic fall. -Neurology has seen and evaluated patient, appreciate assistance. -Lumbar spine MRI with increased signals within the left lateral upper sacrum likely from fracturing. Anterior subluxation of L4 on L5 secondary to facet hypertrophy. Associated moderate disc bulging with moderate stenosis at this level. Decreased signal within the disc throughout the lumbar spine consistent with desiccation. -Pain control. -PT Neurogenic bladder/urinary retention: -José in place. -Urology Dr. [place] has seen and evaluated patient, appreciate assistance. Recommendations to continue José catheter, follow-up as outpatient for voiding trials versus intermittent catheterization. Hypertension - Continue home dose Coreg and lisinopril -BP better this a.m. however later this afternoon increased, Norvasc increased to 10 mg daily, as needed clonidine. Hypothyroidism: Continue Synthroid Hypokalemia, resolved, recheck potassium 138. GI prophylaxis: Stool softener PRN constipation. DVT PPx: Heparin Discussed Condition With: Patient and nurse. Discharge Planning: Pending neurology clearance. (1) Pubic ramus fracture Qualifiers: Encounter type: initial encounter
--- NOTE | 2017-10-14 15:25 | P.PNNEU ---
Subjective Subjective Comments: No acute events reported No headache No chest pain No dyspnea Active Medications: Active Medications Acetaminophen (Tylenol) 650 mg PO Q4H PRN PRN Reason: Temp > 100.4 Hydrocodone Bitart/Acetaminophen (Ward 5/325) 1 tab PO Q4H PRN PRN Reason: PAIN 3-5 Last Admin: 10/14/17 06:17 Dose: 1 tab Al Hydroxide/Mg Hydroxide (Milk Of Magnesia Liq) 30 ml PO Q12H PRN PRN Reason: Mild Constipation Last Admin: 10/12/17 09:52 Dose: 30 ml Amlodipine Besylate (Norvasc) 5 mg PO DAILY [facility] Last Admin: 10/14/17 09:41 Dose: 5 mg Bisacodyl (Dulcolax Supp) 10 mg RECTAL DAILY PRN PRN Reason: SEVERE CONSITIPATION Carvedilol (Coreg) 6.25 mg PO BID [facility] Last Admin: 10/14/17 09:41 Dose: 6.25 mg Cyclobenzaprine HCl (Flexeril) 10 mg PO Q8H PRN PRN Reason: Muscle Spasm Last Admin: 10/13/17 16:25 Dose: 10 mg Heparin Sodium (Porcine) (Heparin Inj) 5,000 units SQ Q12HR [facility] Last Admin: 10/14/17 09:41 Dose: 5,000 units Lactulose (Lactulose Liq) 30 ml PO DAILY PRN PRN Reason: SEVERE CONSITIPATION Last Admin: 10/12/17 17:24 Dose: 30 ml Levothyroxine Sodium (Synthroid) 50 mcg PO DAILY@0600 [facility] Last Admin: 10/14/17 06:17 Dose: 50 mcg Lisinopril (Prinivil) 40 mg PO DAILY [facility] Last Admin: 10/14/17 09:41 Dose: 40 mg Morphine Sulfate (Morphine Inj) 2 mg IV.PUSH Q4H PRN PRN Reason: PAIN 6-10 Last Admin: 10/13/17 01:50 Dose: 2 mg Ondansetron HCl (Zofran Odt) 4 mg PO Q6H PRN PRN Reason: NAUSEA OR VOMITING Senna/Docusate Sodium (Melina-Colace) 1 tab PO BID [facility] Last Admin: 10/14/17 09:41 Dose: 1 tab Sennosides (Senokot) 17.2 mg PO Q12H PRN PRN Reason: Moderate Constipation Temazepam (Restoril) 15 mg PO HS PRN PRN Reason: INSOMNIA Allergies/Adverse Reactions: Allergies Allergy/AdvReac Type Severity Reaction Status Date / Time No Known Allergies Allergy Verified 10/12/17 02:29 Review of Systems All other systems reviewed negative except as stated in HPI Physical Exam Vital signs: Vital Signs 10/13/17 16:00 10/13/17 16:05 10/13/17 16:18 Temperature 97.8 F 97.5 F L 97.5 F L Pulse Rate 77 Respiratory Rate 16 16 16 Blood Pressure 146/67 H 182/77 H 170/79 H Pulse Oximetry 97 16 L 98 10/13/17 20:50 10/13/17 23:56 10/14/17 00:30 Temperature 97.3 F L 98.1 F Pulse Rate 70 71 Respiratory Rate 18 18 15 Blood Pressure 167/77 H 163/77 H Pulse Oximetry 97 95 10/14/17 03:58 10/14/17 08:00 10/14/17 11:59 Temperature 97.5 F L 97.8 F 98.2 F Pulse Rate 70 74 72 Respiratory Rate 17 18 18 Blood Pressure 163/72 H 157/77 H 167/76 H Pulse Oximetry 95 96 97 Intake & Output 10/13/17 10/14/17 10/14/17 18:59 06:59 18:59 Intake Total 240 / 240 360 / 360 Output Total 1999 550 / 550 Balance 240 / 240 -1640 / -1640 -550 / -550 Weight 51.2 kg Intake: Oral 240 / 240 360 / 360 Output: Urine Amount (Catheter) 1999 550 / 550 Indwelling Urethral Catheter 1999 550 / 550 Other: Date of Last Bowel Movement 10/13/17 10/13/17 # Bowel Movements 0 Narrative: GENERAL: Well nourished patient, in no apparent distress. SKIN: Warm and dry. HEAD: Atraumatic. Normocephalic. EYES: Pupils equal and round. No scleral icterus. No injection or drainage. ENT: Nose without drainage. NECK: Trachea midline. Neck is supple. CARDIOVASCULAR: Normal rate and regular rhythm without murmurs, RESPIRATORY: Symmetric, unlabored respirations. Breath sounds equal and clear to auscultation bilaterally. No wheezes, crackles, rales, or rhonchi. GASTROINTESTINAL: Abdomen soft, non-tender, non-distended. NEUROLOGICAL: Awake alert oriented 3 fluent articulate no aphasia. Extraocular movements intact no facial asymmetry tongue midline able raise upper extremity gravity without difficulty, able raise lower extremity gravity for 3-5 seconds some limitation secondary to pelvic pain from her fracture. Reflexes 1+ symmetric plantarflex response no clonus gait not assessed secondary to fall risk - Constitutional no acute distress - Routine HEENT Exam Head: Present: normocephalic, atraumatic Eye: Present: EOMI ENT: Present: mucous membranes moist - Urinary Catheter Management Indwelling Urethral Catheter Cath placed during this visit: no Reason for continuing: Other continuation reason Review/Management - Diagnosis (1) Pubic ramus fracture Code(s): S32.599A - Other specified fracture of unspecified pubis, initial encounter for closed fracture Status: Acute Current Visit: Yes (2) Spinal stenosis Code(s): M48.00 - Spinal stenosis, site unspecified Status: Acute Current Visit: Yes (3) Urinary retention Code(s): R33.9 - Retention of urine, unspecified Status: Acute Current Visit : Yes - Review/Management Plan: MRI L-spine images reviewed moderate stenosis L4 L5, severe appearing stenosis at L5-S1 Recommendations Neurosurgical evaluation of lumbar spine Decompression versus trial physical therapy Physical therapy Pain control Follow exam
--- NOTE | 2017-10-14 15:39 | P.DCO ---
- Diagnosis (1) Pubic ramus fracture - Physical Therapy Order: Evaluate and treat, Improve ambulation, Strength and gait training - Home Health Nursing Order: José catheter maintenance - Certification I have seen patient Nickie Toure on 10/14/17. My clinical findings support the need for the requested home health care services because: Limited mobility due to disease progression I certify that my clinical findings support that this patient is homebound because: Unsteady gait/balance (1) Pubic ramus fracture Qualifiers: Encounter type: initial encounter
[2017-10-15] MEDS: Levothyroxine 50 MCG Tablet PO SCH (05:44)
--- NOTE | 2017-10-15 07:39 | P.PNNEU ---
Subjective Subjective Comments: No acute events reported No headache No chest pain No dyspnea Active Medications: Active Medications Acetaminophen (Tylenol) 650 mg PO Q4H PRN PRN Reason: Temp > 100.4 Hydrocodone Bitart/Acetaminophen ([place] 5/325) 1 tab PO Q4H PRN PRN Reason: PAIN 3-5 Last Admin: 10/14/17 17:06 Dose: 1 tab Al Hydroxide/Mg Hydroxide (Milk Of Magnesia Liq) 30 ml PO Q12H PRN PRN Reason: Mild Constipation Last Admin: 10/12/17 09:52 Dose: 30 ml Amlodipine Besylate (Norvasc) 10 mg PO DAILY [facility] Bisacodyl (Dulcolax Supp) 10 mg RECTAL DAILY PRN PRN Reason: SEVERE CONSITIPATION Carvedilol (Coreg) 6.25 mg PO BID [facility] Last Admin: 10/14/17 20:50 Dose: 6.25 mg Clonidine HCl (Catapres) 0.1 mg PO Q6HR PRN PRN Reason: SBP>160, DBP>90 Last Admin: 10/14/17 17:06 Dose: 0.1 mg Cyclobenzaprine HCl (Flexeril) 10 mg PO Q8H PRN PRN Reason: Muscle Spasm Last Admin: 10/13/17 16:25 Dose: 10 mg Heparin Sodium (Porcine) (Heparin Inj) 5,000 units SQ Q12HR [facility] Last Admin: 10/14/17 20:49 Dose: 5,000 units Lactulose (Lactulose Liq) 30 ml PO DAILY PRN PRN Reason: SEVERE CONSITIPATION Last Admin: 10/12/17 17:24 Dose: 30 ml Levothyroxine Sodium (Synthroid) 50 mcg PO DAILY@0600 [facility] Last Admin: 10/15/17 05:44 Dose: 50 mcg Lisinopril (Prinivil) 40 mg PO DAILY [facility] Last Admin: 10/14/17 09:41 Dose: 40 mg Morphine Sulfate (Morphine Inj) 2 mg IV.PUSH Q4H PRN PRN Reason: PAIN 6-10 Last Admin: 10/13/17 01:50 Dose: 2 mg Ondansetron HCl (Zofran Odt) 4 mg PO Q6H PRN PRN Reason: NAUSEA OR VOMITING Senna/Docusate Sodium (Melina-Colace) 1 tab PO BID [facility] Last Admin: 10/14/17 20:50 Dose: 1 tab Sennosides (Senokot) 17.2 mg PO Q12H PRN PRN Reason: Moderate Constipation Temazepam (Restoril) 15 mg PO HS PRN PRN Reason: INSOMNIA Allergies/Adverse Reactions: Allergies Allergy/AdvReac Type Severity Reaction Status Date / Time No Known Allergies Allergy Verified 10/12/17 02:29 Review of Systems All other systems reviewed negative except as stated in HPI Physical Exam Vital signs: Vital Signs 10/14/17 08:00 10/14/17 11:59 10/14/17 20:26 Temperature 97.8 F 98.2 F 98.2 F Pulse Rate 74 72 80 Respiratory Rate 18 18 17 Blood Pressure 157/77 H 167/76 H 126/60 Pulse Oximetry 96 97 99 10/15/17 00:00 10/15/17 01:11 10/15/17 04:21 Temperature 97.7 F 97.4 F L Pulse Rate 72 72 Respiratory Rate 18 17 18 Blood Pressure 134/62 160/72 H Pulse Oximetry 96 95 Intake & Output 10/14/17 10/15/17 10/15/17 18:59 06:59 18:59 Intake Total 480 / 480 Output Total 1250 / 1250 850 / 850 Balance -1250 / -1250 -370 / -370 Intake: Oral 480 / 480 Output: Urine 850 / 850 Urine Amount (Catheter) 1250 / 1250 Indwelling Urethral Catheter 1250 / 1250 Other: Date of Last Bowel Movement 10/16/17 # Bowel Movements 0 Narrative: GENERAL: Well nourished patient, in no apparent distress. SKIN: Warm and dry. HEAD: Atraumatic. Normocephalic. EYES: Pupils equal and round. No scleral icterus. No injection or drainage. ENT: Nose without drainage. NECK: Trachea midline. Neck is supple. CARDIOVASCULAR: Normal rate and regular rhythm without murmurs, RESPIRATORY: Breath sounds equal and clear to auscultation bilaterally. No wheezes, crackles, rales, or rhonchi. GASTROINTESTINAL: Abdomen soft, non-tender, non-distended. NEUROLOGICAL: Awake alert oriented 3. Extraocular movements intact no facial asymmetry. vff, face sym, raising all 4 ext to gravity; legs stronger - Constitutional no acute distress - Urinary Catheter Management Indwelling Urethral Catheter Cath placed during this visit: no Reason for continuing: Acute urinary retention Review/Management - Diagnosis (1) Pubic ramus fracture Code(s): S32.599A - Other specified fracture of unspecified pubis, initial encounter for closed fracture Status: Acute Current Visit: Yes (2) Spinal stenosis Code(s): M48.00 - Spinal stenosis, site unspecified Status: Acute Current Visit: Yes (3) Urinary retention Code(s): R33.9 - Retention of urine, unspecified Status: Acute Current Visit : Yes - Review/Management Plan: MRI L-spine images reviewed moderate stenosis L4 L5, severe appearing stenosis at L5-S1 Recommendations Neurosurgical evaluation of lumbar spine-pending Decompression versus trial physical therapy-legs getting stronger. inpt rehab consider dc'ing rodriguez and reassess bladder function Physical therapy Pain control Follow exam (1) Pubic ramus fracture Qualifiers: Encounter type: initial encounter
[2017-10-15] MEDS: Senna/Docusate Sodium 8.6/50 MG Tablet PO SCH ×2 (09:00→23:04)
[2017-10-15] MEDS: Carvedilol 6.25 MG Tablet PO SCH ×2 (09:00→21:56)
[2017-10-15] MEDS: Lisinopril 20 MG Tablet PO SCH (09:00)
[2017-10-15] MEDS: Heparin - SQ 10,000 UNITS/ML Vial SQ SCH ×2 (09:01→21:56)
[2017-10-15] MEDS: amLODIPine 10 MG Tablet PO SCH (09:01)
--- NOTE | 2017-10-15 09:01 | P.PN ---
Subjective Interval history: Follow-up visit for fall and pelvic rami fracture, lumbar stenosis with foraminal narrowing, neurogenic bladder, and HTN. Patient is seen and examined resting in bed comfortably, in no acute distress. She denies any fevers, chills , nausea, vomiting, diarrhea, cough or shortness of breath. Pending neurosurgical evaluation for spinal stenosis. Physical Exam Vital signs: Vital Signs 10/14/17 11:59 10/14/17 20:26 10/15/17 00:00 Temperature 36.8 C 36.8 C 36.5 C Pulse Rate 72 80 72 Respiratory Rate 18 17 18 Blood Pressure 167/76 H 126/60 134/62 Pulse Oximetry 97 99 96 10/15/17 01:11 10/15/17 04:21 Temperature 36.3 C L Pulse Rate 72 Respiratory Rate 17 18 Blood Pressure 160/72 H Pulse Oximetry 95 Intake & Output 10/14/17 10/15/17 10/15/17 18:59 06:59 18:59 Intake Total 480 / 480 Output Total 1250 / 1250 850 / 850 Balance -1250 / -1250 -370 / -370 Intake: Oral 480 / 480 Output: Urine 850 / 850 Urine Amount (Catheter) 1250 / 1250 Indwelling Urethral Catheter 1250 / 1250 Other: Date of Last Bowel Movement 10/16/17 # Bowel Movements 0 Narrative: GENERAL: Well nourished patient, in no apparent distress. SKIN: Warm and dry. HEAD: Atraumatic. Normocephalic. EYES: Pupils equal and round. No scleral icterus. No injection or drainage. ENT: Nose without drainage. NECK: Trachea midline. Neck is supple. CARDIOVASCULAR: Normal rate and regular rhythm without murmurs, RESPIRATORY: Breath sounds equal and clear to auscultation bilaterally. No wheezes, crackles, rales, or rhonchi. GASTROINTESTINAL: Abdomen soft, non-tender, non-distended. NEUROLOGICAL: Awake alert oriented 3. Extraocular movements intact no facial asymmetry. - Urinary Catheter Management Indwelling Urethral Catheter Cath placed during this visit: no Reason for continuing: Acute urinary retention Results - Labs CBC & Chem 7: 10/12/17 16:09 10/12/17 16:09 Assessment and Plan - Assessment (1) Pubic ramus fracture Code(s): S32.599A - Other specified fracture of unspecified pubis, initial encounter for closed fracture Status: Acute (2) Spinal stenosis Code(s): M48.00 - Spinal stenosis, site unspecified Status: Acute (3) Urinary retention Code(s): R33.9 - Retention of urine, unspecified Status: Acute (4) Neurogenic bladder Code(s): N31.9 - Neuromuscular dysfunction of bladder, unspecified Status: Acute - Plan 87-year-old female with: Status post fall, fracture of pelvic rami: - Patient has been evaluated by trauma service and orthopedic surgery. Advised conservative management and weightbearing as tolerated. -Weight though recommends weightbearing as tolerated on bilateral lower extremities. Will need to follow-up in 2 weeks for repeat x-ray. - Pain control -Physical therapy. Lumbar spinal stenosis with foraminal narrowing, neurogenic bladder: -Her symptoms might have been exacerbated from the traumatic fall. -Neurology has seen and evaluated patient, appreciate assistance. -Lumbar spine MRI with increased signals within the left lateral upper sacrum likely from fracturing. Anterior subluxation of L4 on L5 secondary to facet hypertrophy. Associated moderate disc bulging with moderate stenosis at this level. Decreased signal within the disc throughout the lumbar spine consistent with desiccation. -Pain control. -PT -Pending neurosurgical evaluationhyd Neurogenic bladder/urinary retention: -José in place. -Urology Dr. [place] has seen and evaluated patient, appreciate assistance. Recommendations to continue José catheter, follow-up as outpatient for voiding trials versus intermittent catheterization. Hypertension - Continue home dose Coreg, lisinopril, and Norvasc. BP still on the high side, will add Hydralazine. -As needed clonidine. Hypothyroidism: Continue Synthroid Hypokalemia, resolved, recheck potassium 3.8 GI prophylaxis: Stool softener PRN constipation. DVT PPx: Heparin Discussed Condition With: Patient and pricing clerk Planning: Pending neurosurgical eval. (1) Pubic ramus fracture Qualifiers: Encounter type: initial encounter
--- NOTE | 2017-10-15 17:27 | P.CONNS ---
History of Present Illness Primary Care Provider: UNKNOWN Chief Complaint: Traumatic fall, back pain, urinary retention, lower extremity weakness History of Present Illness: 87-year-old white female who was transferred from [facility] on . She states that she suffered a fall on 09/24/2017 when she was walking back to her house and missed a step and fell onto her butt. She states that she had immediate pain in her left groin. She was taken to the hospital where she was diagnosed with a back strain and pelvic fractures. She had some urinary retention and had a José catheter placed and subsequently transferred her to [facility] for further management. She states that she has pain in the left pelvis, but is able to fully weight bear with the help of a walker and using her arms. She states she has increasing back pain. She denies any numbness, tingling or radiation of symptoms. Denies any loss of consciousness or dizziness. She has been evaluated by neurology and MRI scan lumbar spine obtained reveals moderate L4-5 spinal stenosis from disc protrusion and facet hypertrophy with degenerative disease. 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 She also appears to have a sacral left-sided insufficiency fracture and possible also coccyx fracture. Orthopedic surgery is recommended nonsurgical management of her pelvic fracture. She has been ambulating with a walker and is planning on being discharged home with home physical therapy. She relates that she has a son and [id number] at home that will help her. Review of Systems Constitutional: Denies anorexia, Denies body ache(s), Denies chills, Denies daytime sleepiness, Denies excessive sweating, Denies fatigue, Denies fever(s), Denies headache(s), Denies increased appetite, Denies lack of energy, Denies malaise, Denies night sweats, Denies weakness, Denies weight gain, Denies weight loss, Denies other Eyes: Denies blind spots, Denies blurry vision, Denies bulging eyes, Denies change in vision, Denies double vision, Denies discharge, Denies dry eyes, Denies floaters, Denies irritation, Denies itchy eyes, Denies loss of vision, Denies pain, Denies requires corrective lenses, Denies sensitivity to light, Denies other Ears, Nose, Mouth, and Throat: Denies abnormal hearing, Denies bleeding gums, Denies bad breath, Denies change in voice, Denies dental pain, Denies difficulty swallowing, Denies dizziness, Denies dry mouth, Denies ear discharge , Denies ear pain, Denies facial pain, Denies headache(s), Denies hearing loss, Denies hoarseness, Denies lip swelling, Denies nosebleed, Denies mouth lesions, Denies mouth pain, Denies nasal congestion, Denies nasal discharge, Denies nasal obstruction, Denies nasal trauma, Denies neck lump, Denies neck pain, Denies nose pain, Denies pain with swallowing, Denies poor balance, Denies post nasal drip, Denies ringing in the ears, Denies sinus pain, Denies sinus pressure , Denies sore throat, Denies throat swelling, Denies tongue swelling, Denies other Cardiovascular: Denies chest pain, Denies chest pain at rest, Denies chest pain with activity, Denies excessive sweating, Denies fainting, Denies fast heart rate, Denies foot swelling, Denies generalized swelling, Denies irregular heart rhythm, Denies leg pain with activity, Denies leg sores, Denies leg swelling, Denies lightheadedness, Denies radiating jaw, neck or arm pain, Denies rapid, pounding, or irregular heartbeat, Denies shortness of breath, Denies shortness of breath with activity, Denies shortness of breath when lying down, Denies shortness of breath causing sudden awakening, Denies slow heart rate, Denies other Respiratory: Denies change in phlegm color, Denies chest congestion, Denies cough, Denies coughing up blood, Denies excessive phlegm production, Denies pain on inspiration, Denies pain with cough, Denies shortness of breath, Denies shortness of breath with activity, Denies snoring, Denies stridor, Denies wheezing, Denies other Gastrointestinal: Denies abdominal pain, Denies belching, Denies black, tarry stools, Denies bloating, Denies bright, red blood in stools, Denies change in bowel habits, Denies constant urge to pass stool, Denies change in stools, Denies coffee ground vomit, Denies constipation, Denies cramping, Denies difficulty swallowing, Denies excessive passing of gas, Denies feeling full early, Denies heartburn, Denies incontinent of stools, Denies loose stools, Denies nausea, Denies pain with swallowing, Denies vomiting, Denies vomiting blood, Denies other Genitourinary: Reports difficulty starting urination, Reports difficulty urinating, Reports dribbling after urination, Reports pelvic pain, Denies abnormal periods, Denies abnormal vaginal bleeding, Denies absent period, Denies bleeding between periods, Denies blood in urine, Denies frequent nighttime urination, Denies genital itching, Denies genital lesions, Denies heavy periods, Denies hot flashes, Denies light periods, Denies nipple discharge , Denies painful intercourse, Denies painful periods, Denies painful urination, Denies prolapse symptoms, Denies sexual problems, Denies side pain, Denies urinary incontinence, Denies urinary urgency, Denies vaginal discharge, Denies vaginal dryness, Denies vaginal odor, Denies vaginal itching, Denies other Musculoskeletal: Reports back pain, Reports stiffness, Denies abnormal walking, Denies body aches, Denies decreased muscle mass, Denies deformity, Denies joint pain, Denies joint swelling, Denies limited joint movement, Denies loss of height, Denies muscle cramps, Denies muscle weakness, Denies neck pain, Denies numbness, Denies radiating pain into limb, Denies tingling, Denies other Skin/Breast: Denies acne, Denies bleeding lesions, Denies boil, Denies breast swelling, Denies breast skin changes, Denies breast pain, Denies breast lump, Denies change in breast shape, Denies change in hair, Denies change in skin color, Denies changing lesions, Denies dry skin, Denies excessive hair growth, Denies hair loss, Denies itching, Denies lesions, Denies nail changes, Denies new lesions, Denies nipple discharge, Denies non-healing lesions, Denies redness , Denies sensitivity to light, Denies rash, Denies skin pain, Denies skin ulcer , Denies sores, Denies stretch estrada, Denies unusual bruising, Denies wounds, Denies yellowing of the skin, Denies other Neurologic: Denies abnormal hearing, Denies abnormal movements, Denies abnormal speech, Denies abnormal walking, Denies behavioral changes, Denies burning sensations, Denies confusion, Denies dizziness, Denies fainting, Denies frequent falls, Denies headache(s), Denies lack of coordination, Denies localized weakness, Denies loss of vision, Denies memory loss, Denies numbness, Denies other visual disturbances, Denies radiating pain, Denies restless legs, Denies convulsions, Denies seizure-like activity, Denies sensory deficit, Denies tingling, Denies tingling/numbness/burning sensations, Denies tremor(s), Denies unsteadiness, Denies weakness, Denies other Psychiatric: Denies abnormal sleep pattern, Denies anxiety, Denies behavioral changes, Denies change in appetite, Denies change in sex drive, Denies confusion , Denies depression, Denies difficulty concentrating, Denies hearing things others do not hear, Denies hopelessness, Denies irritability, Denies lack of enjoyment, Denies memory loss, Denies mood swings, Denies panic attacks, Denies paranoia, Denies seeing things others do not see, Denies sensing things others do not sense, Denies tactile hallucinations, Denies thoughts of hurting/killing others, Denies thoughts of hurting/killing yourself, Denies other Endocrine: Denies cold intolerance, Denies excessive sweating, Denies flushing, Denies heat intolerance, Denies increased hunger, Denies increased thirst, Denies increased urination, Denies rapid, pounding, or irregular heartbeat, Denies other Hematologic/Lymphatic: Denies easy bleeding, Denies easy bruising, Denies enlarged lymph nodes, Denies other Allergic/Immunologic: Denies GI upset with certain foods, Denies hives, Denies itchy eyes, Denies lip swelling, Denies seasonal runny nose, Denies throat swelling, Denies tongue swelling, Denies wheezing, Denies other PMFSH - History History Provided By: Patient - Family History Family History: Family History (Last Updated 10/12/17 @ 14:18 by Weston Mays MD) Other Family history non-contributory - Tobacco History Second Hand Smoke Exposure: Yes Smoking Status: Former smoker Tobacco Type: Cigarettes - Alcohol History How Often Do You Have a Drink Containing Alcohol: 2 to 4 times a month - Substance Use History Substance History: No History of Abuse Medications and Allergies Active Medications: Active Medications Acetaminophen (Tylenol) 650 mg PO Q4H PRN PRN Reason: Temp > 100.4 Hydrocodone Bitart/Acetaminophen ([place] 5/325) 1 tab PO Q4H PRN PRN Reason: PAIN 3-5 Last Admin: 10/14/17 17:06 Dose: 1 tab Al Hydroxide/Mg Hydroxide (Milk Of Magnesia Liq) 30 ml PO Q12H PRN PRN Reason: Mild Constipation Last Admin: 10/12/17 09:52 Dose: 30 ml Amlodipine Besylate (Norvasc) 10 mg PO DAILY [facility] Last Admin: 10/15/17 09:01 Dose: 10 mg Bisacodyl (Dulcolax Supp) 10 mg RECTAL DAILY PRN PRN Reason: SEVERE CONSITIPATION Carvedilol (Coreg) 6.25 mg PO BID [facility] Last Admin: 10/15/17 09:00 Dose: 6.25 mg Clonidine HCl (Catapres) 0.1 mg PO Q6HR PRN PRN Reason: SBP>160, DBP>90 Last Admin: 10/14/17 17:06 Dose: 0.1 mg Cyclobenzaprine HCl (Flexeril) 10 mg PO Q8H PRN PRN Reason: Muscle Spasm Last Admin: 10/13/17 16:25 Dose: 10 mg Heparin Sodium (Porcine) (Heparin Inj) 5,000 units SQ Q12HR [facility] Last Admin: 10/15/17 09:01 Dose: 5,000 units Hydralazine HCl (Apresoline) 10 mg PO TID [facility] Lactulose (Lactulose Liq) 30 ml PO DAILY PRN PRN Reason: SEVERE CONSITIPATION Last Admin: 10/15/17 09:02 Dose: 30 ml Levothyroxine Sodium (Synthroid) 50 mcg PO DAILY@0600 [facility] Last Admin: 10/15/17 05:44 Dose: 50 mcg Lisinopril (Prinivil) 40 mg PO DAILY [facility] Last Admin: 10/15/17 09:00 Dose: 40 mg Morphine Sulfate (Morphine Inj) 2 mg IV.PUSH Q4H PRN PRN Reason: PAIN 6-10 Last Admin: 10/13/17 01:50 Dose: 2 mg Ondansetron HCl (Zofran Odt) 4 mg PO Q6H PRN PRN Reason: NAUSEA OR VOMITING Senna/Docusate Sodium (Melina-Colace) 1 tab PO BID [facility] Last Admin: 10/15/17 09:00 Dose: 1 tab Sennosides (Senokot) 17.2 mg PO Q12H PRN PRN Reason: Moderate Constipation Temazepam (Restoril) 15 mg PO HS PRN PRN Reason: INSOMNIA Allergies Allergy/AdvReac Type Severity Reaction Status Date / Time No Known Allergies Allergy Verified 10/12/17 02:29 Home Medications Medication Instructions Recorded Confirmed Type carvedilol 6.25 mg PO BID MDD 2 tablets 10/12/17 10/12/17 History cyclobenzaprine 10 mg PO Q8H PRN 10/12/17 10/12/17 History levothyroxine 50 mcg PO DAILY 10/12/17 10/12/17 History lisinopril 40 mg PO DAILY 10/12/17 10/12/17 History meloxicam 15 mg PO DAILY PRN 10/12/17 10/12/17 History Exam Vital signs: Vital Signs 10/14/17 20:26 10/15/17 00:00 10/15/17 01:11 Temperature 98.2 F 97.7 F Pulse Rate 80 72 Respiratory Rate 17 18 17 Blood Pressure 126/60 134/62 Pulse Oximetry 99 96 10/15/17 04:21 10/15/17 08:00 10/15/17 12:00 Temperature 97.4 F L 97.9 F 98.0 F Pulse Rate 72 76 79 Respiratory Rate 18 18 18 Blood Pressure 160/72 H 179/79 H 136/64 Pulse Oximetry 95 96 95 Intake & Output 10/14/17 10/15/17 10/15/17 18:59 06:59 18:59 Intake Total 480 / 480 Output Total 1250 / 1250 850 / 850 Balance -1250 / -1250 -370 / -370 Intake: Oral 480 / 480 Output: Urine 850 / 850 Urine Amount (Catheter) 1250 / 1250 Indwelling Urethral Catheter 1250 / 1250 Other: Date of Last Bowel Movement 10/16/17 # Bowel Movements 0 - Constitutional no acute distress - Routine HEENT Exam Head: Present: normocephalic, atraumatic Eye: Present: EOMI, PERRL - Routine Neck Exam Present: supple, full ROM - Routine Respiratory Exam Present: CTA bilaterally - Routine Cardiovascular Exam Present: RRR, S1, S2 - Routine Abdominal Exam Present: soft, normoactive bowel sounds - Routine Extremities Exam Present: full ROM, pulses intact, normal capillary refill - Routine Skin Exam Present: intact, normal turgor - Routine Neurological Exam Present: oriented X3, CN II-XII intact, normal reflexes, plantar reflex, moving all extremities, normal tone, hearing grossly intact, normal speech Results - Laboratory Findings CBC and BMP: 10/12/17 16:09 10/12/17 16:09 Abnormal lab findings: Abnormal Labs 10/12/17 10/12/17 10/12/17 07:06 07:06 16:09 Hct 34.1 L Neut % (Auto) 73.0 H [place] % (Auto) 9.4 H Lymph # (Auto) 0.9 L Sodium 135 L Potassium 3.1 L Chloride Estimated GFR AST 11 L Alkaline Phosphatase 173 H Total Protein 5.8 L Albumin 2.9 L Urine Ketones Urine Occult Blood Ur Leukocyte Esterase Urine WBC Urine Bacteria 10/12/17 10/12/17 16:09 17:45 Hct Neut % (Auto) [place] % (Auto) Lymph # (Auto) Sodium 132 L Potassium Chloride 95 L Estimated GFR 84 L AST Alkaline Phosphatase Total Protein Albumin Urine Ketones Trace H Urine Occult Blood Moderate H Ur Leukocyte Esterase Small H Urine WBC 6 H Urine Bacteria Rare H - Diagnostic Findings Additional findings: Impressions Lumbar Spine MRI 10/13/17 00:00 CONCLUSION: 1. Increased signal within the left lateral upper sacrum likely from fracturing. This a good location for insufficiency fractures. 2. Anterior subluxation of L4 on L5 secondary to severe facet hypertrophy. There is an associated moderate bulging disc. These changes lead to moderate stenosis at this level. 3. Decreased signal within the disks throughout the lumbar spine consistent with desiccation. The disc, with the exception of the L4-L5 level, maintain their height. Assessment and Plan - Assessment (1) Degenerative lumbar spinal stenosis Code(s): M48.061 - Spinal stenosis, lumbar region without neurogenic claudication Status: Acute (2) Pubic ramus fracture Code(s): S32.599A - Other specified fracture of unspecified pubis, initial encounter for closed fracture Status: Acute - Plan 87-year-old lady with a history of low back pain without any associated radiculopathy after a fall 3 weeks ago. She is found to have left pelvic fracture along with the likely sacral and coccyx insufficiency fracture with moderate L4-5 spinal stenosis which is chronic. Her symptoms are improving and she is not able to ambulate and denies any numbness or weakness in the lower extremity. She has a José catheter in place for urinary retention and is being followed by urology. She does not have any cauda equina related symptoms. Treatment options with the lumbar stenosis were discussed including surgical intervention versus continued conservative management. Patient favors continued nonsurgical management and accordingly would recommend rehab and pain control. If her symptoms worsen in the future then she will follow-up in clinic for reevaluation. (2) Pubic ramus fracture Qualifiers: Encounter type: initial encounter
[2017-10-15] MEDS: hydrALAZINE 10 MG Tablet PO SCH (18:39)
[2017-10-16] MEDS: Levothyroxine 50 MCG Tablet PO SCH (06:04)
[2017-10-16 09:30] VITALS: RESP 17
--- NOTE | 2017-10-16 09:31 | P.PNNEU ---
Subjective Subjective Comments: No acute events reported No headache No chest pain No dyspnea Active Medications: Active Medications Acetaminophen (Tylenol) 650 mg PO Q4H PRN PRN Reason: Temp > 100.4 Hydrocodone Bitart/Acetaminophen ([place] 5/325) 1 tab PO Q4H PRN PRN Reason: PAIN 3-5 Last Admin: 10/16/17 06:03 Dose: 1 tab Al Hydroxide/Mg Hydroxide (Milk Of Magnesia Liq) 30 ml PO Q12H PRN PRN Reason: Mild Constipation Last Admin: 10/12/17 09:52 Dose: 30 ml Amlodipine Besylate (Norvasc) 10 mg PO DAILY [facility] Last Admin: 10/15/17 09:01 Dose: 10 mg Bisacodyl (Dulcolax Supp) 10 mg RECTAL DAILY PRN PRN Reason: SEVERE CONSITIPATION Carvedilol (Coreg) 6.25 mg PO BID [facility] Last Admin: 10/15/17 21:56 Dose: 6.25 mg Clonidine HCl (Catapres) 0.1 mg PO Q6HR PRN PRN Reason: SBP>160, DBP>90 Last Admin: 10/14/17 17:06 Dose: 0.1 mg Cyclobenzaprine HCl (Flexeril) 10 mg PO Q8H PRN PRN Reason: Muscle Spasm Last Admin: 10/13/17 16:25 Dose: 10 mg Heparin Sodium (Porcine) (Heparin Inj) 5,000 units SQ Q12HR [facility] Last Admin: 10/15/17 21:56 Dose: 5,000 units Hydralazine HCl (Apresoline) 10 mg PO TID [facility] Last Admin: 10/15/17 18:39 Dose: 10 mg Lactulose (Lactulose Liq) 30 ml PO DAILY PRN PRN Reason: SEVERE CONSITIPATION Last Admin: 10/15/17 09:02 Dose: 30 ml Levothyroxine Sodium (Synthroid) 50 mcg PO DAILY@0600 [facility] Last Admin: 10/16/17 06:04 Dose: 50 mcg Lisinopril (Prinivil) 40 mg PO DAILY [facility] Last Admin: 10/15/17 09:00 Dose: 40 mg Morphine Sulfate (Morphine Inj) 2 mg IV.PUSH Q4H PRN PRN Reason: PAIN 6-10 Last Admin: 10/13/17 01:50 Dose: 2 mg Ondansetron HCl (Zofran Odt) 4 mg PO Q6H PRN PRN Reason: NAUSEA OR VOMITING Senna/Docusate Sodium (Melina-Colace) 1 tab PO BID [facility] Last Admin: 10/15/17 23:04 Dose: Not Given Sennosides (Senokot) 17.2 mg PO Q12H PRN PRN Reason: Moderate Constipation Last Admin: 10/15/17 22:06 Dose: 17.2 mg Temazepam (Restoril) 15 mg PO HS PRN PRN Reason: INSOMNIA Allergies/Adverse Reactions: Allergies Allergy/AdvReac Type Severity Reaction Status Date / Time No Known Allergies Allergy Verified 10/12/17 02:29 Physical Exam Vital signs: Vital Signs 10/15/17 12:00 10/15/17 16:00 10/15/17 20:00 Temperature 98.0 F 97.6 F 98.3 F Pulse Rate 79 79 83 Respiratory Rate 18 17 16 Blood Pressure 136/64 163/74 H 148/67 H Pulse Oximetry 95 98 95 10/16/17 00:00 Temperature 98.3 F Pulse Rate 75 Respiratory Rate 14 Blood Pressure 145/66 H Pulse Oximetry 96 Intake & Output 10/15/17 10/16/17 10/16/17 18:59 06:59 18:59 Intake Total 600 / 600 Output Total 1175 / 1175 1200 / 1200 Balance -1175 / -1175 -600 / -600 Intake: Oral 600 / 600 Output: Urine 1175 / 1175 1200 / 1200 Narrative: GENERAL: Well nourished patient, in no apparent distress. SKIN: Warm and dry. HEAD: Atraumatic. Normocephalic. EYES: Pupils equal and round. No scleral icterus. No injection or drainage. ENT: Nose without drainage. NECK: Trachea midline. Neck is supple. CARDIOVASCULAR: Normal rate and regular rhythm without murmurs, RESPIRATORY: Breath sounds equal and clear to auscultation bilaterally. GASTROINTESTINAL: Abdomen soft, non-tender, non-distended. NEUROLOGICAL: Awake alert oriented 3. Extraocular movements intact no facial asymmetry. Visual martinez full able to raise all extremity gravity for at least 10 seconds. Improved strength in her lower legs reflexes 2+ symmetric plantarflex her no clonus elicited gait not assessed secondary to fall risk - Urinary Catheter Management Indwelling Urethral Catheter Cath placed during this visit: no Reason for continuing: Acute urinary retention Review/Management - Diagnosis (1) Pubic ramus fracture Code(s): S32.599A - Other specified fracture of unspecified pubis, initial encounter for closed fracture Status: Acute Current Visit: Yes (2) Spinal stenosis Code(s): M48.00 - Spinal stenosis, site unspecified Status: Acute Current Visit: Yes (3) Urinary retention Code(s): R33.9 - Retention of urine, unspecified Status: Acute Current Visit : Yes - Review/Management Plan: MRI L-spine images reviewed moderate stenosis L4 L5, severe appearing stenosis at L5-S1 Seen by neurosurgery Recommendations Discharge planning home versus rehab. Patient preferring to go home stay with her children consider dc'ing rodriguez and reassess bladder function Laxative for constipation (1) Pubic ramus fracture Qualifiers: Encounter type: initial encounter
[2017-10-16] MEDS: hydrALAZINE 10 MG Tablet PO SCH ×2 (09:49→13:00)
[2017-10-16] MEDS: amLODIPine 10 MG Tablet PO SCH (09:49)
[2017-10-16] MEDS: Lisinopril 20 MG Tablet PO SCH (09:49)
[2017-10-16] MEDS: Senna/Docusate Sodium 8.6/50 MG Tablet PO SCH (09:49)
[2017-10-16] MEDS: Carvedilol 6.25 MG Tablet PO SCH (09:49)
[2017-10-16] MEDS: Heparin - SQ 10,000 UNITS/ML Vial SQ SCH (09:50)
--- NOTE | 2017-10-16 09:59 | P.DS ---
Date of admission: 10/12/17 00:29 Primary care physician: UNKNOWN Attending physician on discharge: Weston Mays Anticipated date of discharge: 10/16/17 Brief History from admission: 87-year-old female with a medical history significant for hypertension and hypothyroidism transferred from [facility] for further workup. The patient initially had a fall about 3 weeks ago. She reports that her legs gave way and she fell to her side. She was seen in the emergency room and hip fracture ruled out at the time. She went home but continues to do poorly with difficulty bearing weight and walking. She reports the pain started moving to her lower back on the right side. She also started to have urinary incontinence every time she would stand up. The patient went back to [facility] emergency room where a pelvic CT revealed a superior and inferior pubic rami fracture. CT of the spine also showed degenerative changes at L4-L5. Also concern for fracture at T2. Imaging also showed distended bladder. A José catheter to have since been placed. The patient was transferred to [facility] for further workup, consultation with neurology and urology. DS: Diagnosis - Discharge Diagnosis (1) Pubic ramus fracture Status: Acute (2) Spinal stenosis Status: Acute (3) Urinary retention Status: Acute (4) Neurogenic bladder Status: Acute DS: Medications - Discharge Medications Prescriptions: amlodipine [Norvasc] 10 mg PO DAILY #30 tab hydrocodone-acetaminophen 1 tab PO Q4H PRN #8 tab PRN Reason: PAIN 3-10 DS: Summary Hospital Course: 87-year-old female with past medical history significant for HTN and hypothyroidism who is a transfer from [facility] for further workup fall about 3 weeks previous to admission. During evaluation at [facility] CT of the pelvis revealed a superior and inferior pubic rami fracture. CT of the spine also show degenerative changes at L4-L5 with concerning for fractures at T2. Patient also had distended bladder and urinary retention for which she had José catheter applied. Orthopedic surgery was consulted to evaluate for pelvic rami fracture, or though recommended conservative management with weightbearing as tolerated. Neurology was consulted for concerns of lower extremity weakness, trauma and urinary retention. Neurology evaluated patient and recommended MRI of the lumbar spine which showed stenosis. Neurosurgery was consulted and evaluated patient and discussed options. The choice was made for conservative treatment and follow-up with neurosurgery as outpatient. Patient was also evaluated by urology who recommended continuing José catheter and follow-up as outpatient for voiding trials versus intermittent catheterization. Patient was seen and evaluated by physical therapy who recommended home health physical therapy. Case management has been involved in assisting with proper equipment to be delivered at home. Patient will be discharged and support including family will live close by. Patient is seen and examined this morning resting in bed comfortably. Denies any fevers, chills, nausea, vomiting, diarrhea, cough, shortness of breath or chest pain. She has not yet had a bowel movement but states that it is not unusual for her to go several days without a bowel movement denies any abdominal pain or discomfort. Aware of ongoing stool softeners to help prevent constipation when she is taking pain medication. Also discussed with patient the need to follow-up with urology as well as neurosurgery for ongoing follow- up and recommendations, verbalized understanding. E-Forced checked "no matching patient identified." - Time Spent with Patient Total time spent providing and/or coordinating discharge services: - Quality: VTE Deep Vein Thrombosis/Pulmonary Embolism Present on Admission: No Exam Vital signs: Vital Signs 10/15/17 12:00 10/15/17 16:00 10/15/17 20:00 Temperature 36.7 C 36.4 C 36.8 C Pulse Rate 79 79 83 Respiratory Rate 18 17 16 Blood Pressure 136/64 163/74 H 148/67 H Pulse Oximetry 95 98 95 10/16/17 00:00 10/16/17 08:00 Temperature 36.8 C 36.6 C Pulse Rate 75 68 Respiratory Rate 14 17 Blood Pressure 145/66 H 138/63 Pulse Oximetry 96 97 Intake & Output 10/15/17 10/16/17 10/16/17 18:59 06:59 18:59 Intake Total 600 / 600 Output Total 1175 / 1175 1200 / 1200 Balance -1175 / -1175 -600 / -600 Intake: Oral 600 / 600 Output: Urine 1175 / 1175 1200 / 1200 Narrative: GENERAL: Well nourished patient, in no apparent distress. SKIN: Warm and dry. HEAD: Atraumatic. Normocephalic. EYES: Pupils equal and round. No scleral icterus. No injection or drainage. ENT: Nose without drainage. NECK: Trachea midline. Neck is supple. CARDIOVASCULAR: Normal rate and regular rhythm without murmurs, RESPIRATORY: Breath sounds equal and clear to auscultation bilaterally. No wheezes, crackles, rales, or rhonchi. GASTROINTESTINAL: Abdomen soft, non-tender, non-distended. + bowel sounds. NEUROLOGICAL: Awake alert oriented 3. Extraocular movements intact no facial asymmetry. Results Procedures completed during hospitalization: None - Impressions ITS Impressions Lumbar Spine MRI 10/13/17 00:00 CONCLUSION: 1. Increased signal within the left lateral upper sacrum likely from fracturing. This a good location for insufficiency fractures. 2. Anterior subluxation of L4 on L5 secondary to severe facet hypertrophy. There is an associated moderate bulging disc. These changes lead to moderate stenosis at this level. 3. Decreased signal within the disks throughout the lumbar spine consistent with desiccation. The disc, with the exception of the L4-L5 level, maintain their height. Discharge Plan - Discharge Disposition Patient Disposition: /Home Health Service - Discharge Condition Condition: Good - Discharge Order Discharge Orders: Discharge Order (Routine); Ordered 10/16/17 Ordered By: Jennifer Ward - Physicians Team Primary Care Provider: UNKNOWN, Attending Provider: Weston Mays Other Providers: Juan Guerra MD ; John Saldaña MD ; Bruno Salgado MD ; [place] DO ; Erasmo Malhotra MD - Rxs /Orders / Referrals /Forms Prescriptions: New amlodipine [Norvasc] 10 mg Tablet 10 mg PO DAILY Qty: 30 RF: 0 hydrocodone-acetaminophen 5-325 mg Tablet 1 tab PO Q4H PRN (Reason: PAIN 3-10) Qty: 8 RF: 0 Continue carvedilol 6.25 mg Tablet 6.25 mg PO BID MDD 2 tablets cyclobenzaprine 10 mg Tablet 10 mg PO Q8H PRN (Reason: Muscle Spasm) levothyroxine 50 mcg Tablet 50 mcg PO DAILY lisinopril 40 mg Tablet 40 mg PO DAILY meloxicam 15 mg Tablet 15 mg PO DAILY PRN (Reason: Acute Pain) Referrals: [facility] [AGENCY] - See Instructions (Home health care is staffed with Nurse merchandise presentation manager [phone].) Erasmo Malhotra MD [NEUROSURGERY] - See Instructions John Saldaña MD [Physician] - See Instructions UNKNOWN, [Primary Care Provider] - See Instructions (follow up with Ortho at home in 2-3 weeks) - Discharge Instructions Patient Printed Instructions: Pelvic Fracture (GEN), José Catheter Placement and Care (DC), Narcotic Pain Management (DC) Additional Instructions: Your Health Problems: Goals to Promote Your Health: * To prevent worsening of your condition * To maintain your health at the optimal level Directions to Meet Your Goals: * Take your medications as prescribed * Follow your dietary instruction * Follow activity as directed * Keep your appointments as scheduled * Take your immunizations and boosters as scheduled * If your symptoms worsen call your PCP * If no PCP go to Urgent Care or Emergency Room Smoking is dangerous to your health. Avoid second hand smoke. You may reach the 24-hour crisis hotline for domestic abuse at . - Post Discharge Care Plan Care Plan Goals: Make or keep your follow up appointments as directed by your provider. Take medications as directed. Notify your doctor if your pain is not being controled by your current medication. Notify your Neurologist if you notice any new numbness or tingling. in your extremites. may take a laxative of your choice to help control constipation Good luck in your recovery, it has been a pleasure taking care of you. Thank you for choosing [facility] for all your medical needs.
[2017-10-16 12:10] VITALS: BP 145/67; PULSE 74; TEMP 98.2; O2SAT 95
== END 2017-10-16 15:43 | disposition home health service (06) ==
LOC: N06 10-12 00:29 → UNDODISIN 10-13 12:10
PROVIDERS: ADMIT Family Medicine; ATTEND Family Medicine